=== PATIENT | male | born 1950 | race Caucasian/White ===

== ENCOUNTER 2016-07-08 19:59 | Emergency (ER) | payer MEDICARE ==
[~2016-07-08] VITALS: Ht 175.3 cm; Wt 50.0 kg
[2016-07-08] MEDS ORDERED: PredniSONE 20 MG TABLET PO ONE (23:30)
[2016-07-08] MEDS ORDERED: DiphenhydrAMINE HCL 50 MG/ML VIAL IM ONE (23:30)
[2016-07-09 02:43] LABS: HEMATOCRIT 53.1 % (41-53); HEMOGLOBIN 17.4 g/dL (13.5-17.5); MEAN CORPUSCULAR HEMOGLOBIN 32.1 pg (26.0-34.0); MEAN CORPUSCULAR HGB CONC 32.8 G/dL (31.0-37.0); MEAN CORPUSCULAR VOLUME 98 fL (80-100); PLATELET COUNT (AUTO) 289 K/uL (150-450); RED BLOOD CELL COUNT(AUTO) 5.43 MIL/uL (4.50-5.90); RED CELL DISTRIBUTION WIDTH 14.7 % (11.5-14.5); WHITE BLOOD COUNT (AUTO) 17.6 K/uL (4.5-11.0)
[2016-07-09 02:54] LABS: ANION GAP 11 mmol/L (8-16); CALCIUM, TOTAL 8.2 mg/dL (8.8-10.5); CARBON DIOXIDE 28 mmol/L (22-29); CHLORIDE 103 mmol/L (98-107); CREATININE 0.87 mg/dL (0.60-1.30); GLOMERULAR FILTR. RATE CALC > 60 mL/min (>60); POTASSIUM 3.9 mmol/L (3.5-5.1); SODIUM SERUM 142 mmol/L (136-145); UREA NITROGEN, BLOOD 7 mg/dL (7-18)
[2016-07-09 02:57] LABS: CREATINE KINASE, TOTAL 31 U/L (39-308)
[2016-07-09 03:49] LABS: EOSINOPHILS % (MANUAL) 10 % (1-6); LYMPHOCYTES % (MANUAL) 9 % (22-44); TOTAL CELLS COUNTED 100
[2016-07-09 03:57] LABS: ERYTHROCYTE SEDIMENTATION RATE 0 MM/HR (0-15)
[2016-07-09 04:07] VITALS: BP 115/76
== END 2016-07-09 04:35 | disposition home or self-care (01) ==
LOC: EMS 20:02
DX: L30.9 Dermatitis, unspecified (principal); S43.004A Unspecified dislocation of right shoulder joint, initial encounter; W19.XXXA Unspecified fall, initial encounter; Y93.89 Activity, other specified; Y92.89 Other specified places as the place of occurrence of the external cause; Y99.8 Other external cause status
CPT/HCPCS: 29105; 36415; 73030; 80048; 82550; 85025; 85651; 86140; 96372; 99285; J1200; J7512

== ENCOUNTER 2016-07-29 15:26 | Emergency (ER) | payer MEDICARE ==
[~2016-07-29] VITALS: Ht 167.6 cm; Wt 65.0 kg
[2016-07-29] MEDS ORDERED: PredniSONE 20 MG TABLET PO ONE (17:15)
[2016-07-29] MEDS ORDERED: PERMETHRIN 5% 60 GM CREAM TP ONE (17:15)
[2016-07-29] MEDS ORDERED: DiphenhydrAMINE HCL 50 MG CAPSULE PO ONE (17:15)
[2016-07-29 17:40] VITALS: BP 141/88
== END 2016-07-29 17:49 | disposition home or self-care (01) ==
LOC: EMS 15:30
DX: L50.9 Urticaria, unspecified (principal); B86 Scabies; L30.9 Dermatitis, unspecified
CPT/HCPCS: 99284; J7512